=== PATIENT | female | born 1995 | race Caucasian/White ===

== ENCOUNTER 2019-02-06 19:06 | Emergency (ER) | payer OTHER ==
--- NOTE | 2019-02-06 19:27 | EDPHY ---
H & P Stated Complaint: ~7wks , abd cramping, bleeding Time Seen by Provider: 02/06/19 19:27 HPI/ROS: HPI: This is a 23-year-old female who presents with Chief Complaint: ~7wks , abd cramping, bleeding Location: Vaginal Quality: Bleeding Duration: 3-5 hours prior to arrival Signs and Symptoms: no fever, no nausea, no vomiting, no hematemesis, no blood in stool, no abdominal bloating, no diarrhea, no back pain, no urinary symptoms , no vaginal discharge, no indigestion, no chest pain, no shortness of breath Timing: Acute, intermittent episodes Severity: [id number] Context: Patient was at work for 8 hr day when she started to feel bilateral pelvic cramping pain associated with dark blood small amount and then several hours later had bright red blood that was approximately the amount of a regular tampon. This bright red blood noted to have 2 clots in it. She is a G1, last menstrual period December 15. OBGYN she wants to be in [place]. Believes that her blood type is AB positive but is unsure. Denies fever, urinary symptoms, back pain, vomiting. Taking vitamin. Denies alcohol, drug, tobacco use. Last meal was at 12 noon. Last bottle of water drank at 7:00 p.m. No recent sexual intercourse. Denies urinary symptoms. Modifying Factors: None Comment: ROS: A comprehensive 10 system review of systems is otherwise negative aside from elements mentioned in the history of present illness. MEDICAL/SURGICAL/SOCIAL HISTORY: Medical history: Generally healthy. Does not take any regular medications. 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 Denies alcohol, drug, tobacco use. Family history noncontributory. CONSTITUTIONAL: Well-developed, well-nourished, young adult white female, nontoxic in appearance, awake and alert, no obvious distress HEENT: Atraumatic and normocephalic, PERRL, EOMI. Nares patent; no rhinorrhea; no nasal mucosal edema. Tympanic membranes clear. Oropharynx clear, no exudate and moist pink mucosa. Airway patent. No lymphadenopathy. No meningismus. Cardiovascular: Normal S1/S2, regular rate, regular rhythm, without murmur rub or gallop. PULMONARY/CHEST: Symmetrical and nontender. Clear to auscultation bilaterally. Good air movement. No accessory muscle usage. ABDOMEN: Soft, nondistended, mild suprapubic tenderness, no rebound, no guarding, no peritoneal signs, no masses or organomegaly. No CVAT. EXTREMITIES: 2/2 pulses, strength 5/5, no deformities, no clubbing, no cyanosis or edema. NEUROLOGICAL: no focal neuro deficits. GCS 15. SKIN: Warm and dry, no erythema. no rash. Good capillary refill. Source: Patient Exam Limitations: No limitations - Personal History LMP (Females 10-55): Current Tetanus Diphtheria and Acellular Pertussis (TDAP): Yes - Medical/Surgical History Hx Asthma: No Hx Chronic Respiratory Disease: No Hx Diabetes: No Hx Cardiac Disease: No Hx Renal Disease: No Hx Cirrhosis: No Hx Alcoholism: No Hx HIV/AIDS: No Hx Splenectomy or Spleen Trauma: No Other PMH: Denies - Social History Smoking Status: Never smoked Constitutional: Initial Vital Signs Temperature (C) 36.7 C 02/06/19 19:14 Heart Rate 74 02/06/19 19:14 Respiratory Rate 16 02/06/19 19:14 Blood Pressure 116/73 02/06/19 19:14 O2 Sat (%) 97 02/06/19 19:14 O2 Delivery Mode Room Air Allergies/Adverse Reactions: No Known Allergies Allergy (Unverified 02/06/19 19:14) Home Medications: Medication Instructions Recorded Nitrofurantoin Monohyd/M-Cryst 100 mg PO BID 7 Days #14 capsule 02/06/19 [Macrobid 100 mg Capsule] Medical Decision Making - Diagnostics Imaging Results: Imaging Impressions Pelvic/Renal Ultrasound 02/06/19 19:44 Impression: 1. of unknown location. No intrauterine gestation or definite ectopic . 2. Dermoid cyst versus bowel gas in the left adnexa. Findings discussed with Emergency Department Physician Ballistics Tester, SIMIN Rosario, on February 06, 2019 at 2153. ED Course/Re-evaluation: Vital Signs reviewed and stable upon arrival. IV access, laboratory studies, urinalysis, pelvic ultrasound, blood type ordered Given 1 L normal saline 2009: Laboratory studies reviewed. No signs of anemia/platelet dysfunction/RENE /electrolyte imbalance. Quant serum HCG 510 2013: Urinalysis shows 1+ bacteria, 3+ blood, trace ketones; will sent for urine culture and start Macrobid due to bacteria and urine during . Blood type is O-negative; Rhogam given 2151: By radiologist, Dr. Jean-Baptiste who reports that pelvic ultrasound shows no gestational sac, trace free fluid, left dermoid cyst, ovaries have good blood flow Patient understands that she has suspected spontaneous threatened miscarriage and she is to follow up with OBGYN in the next 3-5 days for repeat serum HCG level and plus or minus repeat pelvic ultrasound. We thoroughly discussed pelvic rest. This patient was seen under the supervision of my primary supervising physician. I evaluated and cared for this patient independently. Differential Diagnosis: Abdominal pain in a female including but not limited to ovarian cyst, pelvic inflammatory disease, ovarian torsion, urinary tract infection, and appendicitis. - Data Points Laboratory Results: Laboratory Results 02/06/19 19:24 02/06/19 19:24 02/06/19 02/06/19 02/06/19 19:25 19:24 19:24 WBC RBC Hgb Hct MCV MCH MCHC RDW Plt Count MPV Neut % (Auto) Lymph % (Auto) Hudson % (Auto) Eos % (Auto) Baso % (Auto) Nucleat RBC Rel Count Absolute Neuts (auto) Absolute Lymphs (auto) Absolute Monos (auto) Absolute Eos (auto) Absolute Basos (auto) Absolute Nucleated RBC Immature Gran % Immature Gran # Sodium Potassium Chloride Carbon Dioxide Anion Gap BUN Creatinine Estimated GFR Glucose Calcium Beta HCG, Qual POSITIVE Beta HCG, Quant Urine Color PALE YELLOW Urine Appearance CLEAR Urine pH 6.0 (5.0-7.5) Ur Specific [place] 1.002 (1.002-1.030) Urine Protein NEGATIVE (NEGATIVE) Urine Ketones TRACE H (NEGATIVE) Urine Blood 3+ H (NEGATIVE) Urine Nitrate NEGATIVE (NEGATIVE) Urine Bilirubin NEGATIVE (NEGATIVE) Urine Urobilinogen NEGATIVE EU EU (0.2-1.0) Ur Leukocyte Esterase NEGATIVE (NEGATIVE) Urine RBC 1-3 /hpf /hpf (0-3) Urine WBC 1-3 /hpf /hpf (0-3) Ur Epithelial Cells TRACE /lpf /lpf (NONE-1+) Urine Bacteria 1+ /hpf H /hpf (NONE SEEN) Urine Glucose NEGATIVE (NEGATIVE) Patient ABO/Rh O NEGATIVE Antibody Screen NEGATIVE Bld Prod Order Rhogam READY 02/06/19 02/06/19 19:24 19:24 WBC 11.96 10^3/uL H 10^3/uL (3.80-9.50) RBC 4.82 10^6/uL 10^6/uL (4.18-5.33) Hgb 14.9 g/dL g/dL (12.6-16.3) Hct 43.1 % % (38.0-47.0) MCV 89.4 fL fL (81.5-99.8) MCH 30.9 pg pg (27.9-34.1) MCHC 34.6 g/dL g/dL (32.4-36.7) RDW 11.9 % % (11.5-15.2) Plt Count 229 10^3/uL 10^3/uL (150-400) MPV 9.6 fL fL (8.7-11.7) Neut % (Auto) 68.3 % % (39.3-74.2) Lymph % (Auto) 19.5 % % (15.0-45.0) Hudson % (Auto) 8.0 % % (4.5-13.0) Eos % (Auto) 3.5 % % (0.6-7.6) Baso % (Auto) 0.4 % % (0.3-1.7) Nucleat RBC Rel Count 0.0 % % (0.0-0.2) Absolute Neuts (auto) 8.16 10^3/uL H 10^3/uL (1.70-6.50) Absolute Lymphs (auto) 2.33 10^3/uL 10^3/uL (1.00-3.00) Absolute Monos (auto) 0.96 10^3/uL H 10^3/uL (0.30-0.80) Absolute Eos (auto) 0.42 10^3/uL H 10^3/uL (0.03-0.40) Absolute Basos (auto) 0.05 10^3/uL 10^3/uL (0.02-0.10) Absolute Nucleated RBC 0.00 10^3/uL 10^3/uL (0-0.01) Immature Gran % 0.3 % % (0.0-1.1) Immature Gran # 0.04 10^3/uL 10^3/uL (0.00-0.10) Sodium 137 mEq/L mEq/L (135-145) Potassium 3.8 mEq/L mEq/L (3.5-5.2) Chloride 105 mEq/L mEq/L (97-110) Carbon Dioxide 20 mEq/l L mEq/l (22-31) Anion Gap 12 mEq/L mEq/L (6-14) BUN 7 mg/dL mg/dL (7-23) Creatinine 0.7 mg/dL mg/dL (0.6-1.0) Estimated GFR > 60 Glucose 88 mg/dL mg/dL (70-100) Calcium 9.3 mg/dL mg/dL (8.5-10.4) Beta HCG, Qual Beta HCG, Quant 510.09 mIU/mL H mIU/mL (0.00-4.83) Urine Color Urine Appearance Urine pH Ur Specific [place] Urine Protein Urine Ketones Urine Blood Urine Nitrate Urine Bilirubin Urine Urobilinogen Ur Leukocyte Esterase Urine RBC Urine WBC Ur Epithelial Cells Urine Bacteria Urine Glucose Patient ABO/Rh Antibody Screen Bld Prod Order Rhogam Medications Given: Discontinued Medications Sodium Chloride (Ns) 1,000 mls @ 0 mls/hr IV EDNOW ONE; Wide Open PRN Reason: Protocol Stop: 02/06/19 19:45 Last Admin: 02/06/19 19:51 Dose: 1,000 mls Nitrofurantoin (Macrobid 100mg Prepack#2) 1 btl TAKEHOME EDNOW ONE PRN Reason: Protocol Stop: 02/06/19 21:55 Last Admin: 02/06/19 22:07 Dose: 1 btl Departure - Departure Disposition: Home, Routine, Self-Care Clinical Impression: Threatened miscarriage in early , Bacteria in urine, Dermoid cyst of left ovary Condition: Good Instructions: Nitrofurantoin (By mouth), Threatened Miscarriage (ED), Urinary Tract Infection in (ED), Pelvic Rest (ED) Additional Instructions: Consume a minimum of 8-10 glasses of water or electrolyte fluid replacement drinks that include Gatorade, Powerade, Pedialyte. Please limit physical activity to mild activity level until seen by OBGYN. Observe pelvic rest. Take all antibiotics as directed. Do not skip a dose. Follow up with OBGYN in the next 3-5 days. They will likely repeat your serum HCG level to trend and may even repeat pelvic ultrasound. Follow-Up: Please follow-up as noted above. Follow-up sooner if your condition worsens or if you develop any new problems. Call as soon as possible for an appointment. Be clear when you call for an appointment that this is an Emergency Department follow-up. Contact the Emergency Department if you have trouble arranging follow-up care. Our referrals are not based on your insurance network. When time allows, contact your insurance carrier to verify the referral physician is in your plan. If not, get a referral for an in-network technology instructor. Referrals: Debbie Fernández DO [Doctor of Osteopathy] - As per Instructions Stand Alone Forms: Work Excuse Prescriptions: Nitrofurantoin Monohyd/M-Cryst [Macrobid 100 mg Capsule] 100 mg PO BID 7 Days # 14 capsule
[2019-02-06] MEDS ORDERED: NS 1,000 ML IV ONE (19:44)
[2019-02-06 19:55] LABS: PLATELET COUNT 229 10^3/uL (150-400)
[2019-02-06] MEDS ORDERED: NITROFURANTOIN 100MG PREPACK#2 BTL TAKEHOME ONE (21:54)
[2019-02-06 22:12] VITALS: BP 105/70
== END 2019-02-06 22:10 | disposition home or self-care (01) ==
DX: O20.0 Threatened abortion (principal); O26.891 Other specified pregnancy related conditions, first trimester; R82.71 Bacteriuria; D27.1 Benign neoplasm of left ovary; Z3A.01 Less than 8 weeks gestation of pregnancy